=== PATIENT | male | born 1995 | race Caucasian/White ===

== ENCOUNTER 2023-08-16 13:44 | Outpatient (CLI) | payer MEDICAID, SELFPAY ==
[2023-08-16 14:12] LABS: Basophils % 0.7 % (0.1-2.0); Eosinophils # 0.1 K/mm3 (0.0-0.4); Eosinophils % 1.2 % (0.1-12.0); Hematocrit 39.8 % (42.0-52.0); Hemoglobin 13.4 g/dL (14.1-18.0); Lymphocytes # 1.8 K/mm3 (0.7-4.5); Lymphocytes % 28.4 % (10-50); Mean Corpuscular HGB Conc 33.7 g/dL (31.8-35.4); Mean Corpuscular Hemoglobin 30.3 pg (27.0-31.2); Mean Corpuscular Volume 89.9 fl (80-94); Mean Platelet Volume 8.9 fl (7.4-10.4); Monocytes # 0.4 K/mm3 (0.1-1.0); Monocytes % 5.9 % (1.7-9.3); Neutrophils # 4.1 K/mm3 (1.8-7.8); Neutrophils % 63.8 % (37.0-80.0); Platelet Count 225 K/mm3 (142-424); Red Blood Count 4.43 M/mm3 (4.60-6.20); Red Cell Distribution Width 14.4 % (11.5-17.5); White Blood Count 6.4 K/mm3 (4.8-10.8)
[2023-08-16 14:46] LABS: Chloride 105 mmol/L (98-107); Potassium 4.2 mmoL/L (3.5-5.1); Sodium 140 mmol/L (136-145)
[2023-08-16 14:47] LABS: Hemoglobin A1C 4.8 % (4.0-6.0)
[2023-08-16 14:48] LABS: Alanine Aminotransferase 69 U/L (12-78); Albumin Level 4.4 g/dl (3.5-5.0); Alkaline Phosphatase 84 U/L (38-126); Anion Gap 12.2 mEq/L (5-15); Aspartate Amino Transferase 53 U/L (17-59); Bilirubin,Indirect 0.8 mg/dL (0.0-0.9); Bilirubin,Total 0.8 mg/dl (0.2-1.3); Bilirubin,Unconjugated 0.8 mg/dL (0.0-1.1); Blood Urea Nitrogen 8 mg/dl (9-20); Carbon Dioxide 27 mmol/L (22.0-30.0); Cholesterol 166 mg/dl (140-200); Estimated Glomerular Filt Rate 115 ml/min (>60); GFR (African American) 139 ML/MIN (>60); Total Protein,Serum 7.6 g/dl (6.3-8.2); Triglycerides 101 mg/dl (30-150); VLDL Cholesterol 20 mg/dL (0-40)
[2023-08-16 14:49] LABS: Calcium 9.2 mg/dl (8.4-10.2); Chol/HDL Ratio 3.6 (1-3.5); Glucose 111 mg/dl (74-100); HDL Cholesterol 46 mg/dl (40-60)
[2023-08-16 15:02] LABS: Direct LDL Cholesterol 90.66 mg/dL (100-129)
[2023-08-16 15:06] LABS: Free T4 (Free Thyroxine) 1.03 ng/dl (0.78-2.19)
[2023-08-16 15:20] LABS: Thyroid Stimulating Hormone 3.24 uIU/mL (0.465-4.68)
== END 2023-08-16 23:59 | disposition home or self-care (01) ==
LOC: LAB 13:46
PROVIDERS: PCP Nurse Practitioner Family; Visit Provider Nurse Practitioner
DX: G47.33 Obstructive sleep apnea (adult) (pediatric) (principal); R06.83 Snoring; I10 Essential (primary) hypertension; Z82.49 Family history of ischemic heart disease and other diseases of the circulatory system
CPT/HCPCS: 36415; 80048; 80061; 80076; 83036; 83735; 84439; 84443; 85025

== ENCOUNTER 2023-09-18 12:14 | Outpatient (CLI) | payer MEDICAID, SELFPAY ==
--- NOTE | 2023-09-18 12:14 | CA_ITS ---
APPROVED REPORT EXAM: Comprehensive 2D, Doppler, and color-flow Echocardiogram [employer] Professor: Muriel Justice RDCS Ht: 5 ft 7 in Wt: 434lbs BSA: 2.81 BP: 152/71 mmHg Indications: HTN M-Mode Dimensions RVDd 1.49 cm (0.9-2.6) LA Diam 3.23 cm (1.9-4.0) LVDd 5.71 cm (3.5-5.7) LVDs 4.46 cm (3.5-5.7) IVSd 0.64 cm (0.6-1.1) PWd 0.84 cm (0.6-1.1) EF (Teich) 43.70% FS 21.90% EDV (Teich) 160.70 mL ESV (Teich) 90.50 mL LV Diastology E Decel Time 150 (160-240 msec) E/A Ratio 1.7 Mitral Valve MV E Max Ravinder. 94.0 (40-130 cm/s) MV A Velocity 56.0 (40-130 cm/s) E/A Ratio 1.68 MV PHT 44.0 ms Left Ventricle The left ventricle is normal size. The left ventricular systolic function is normal. The left ventricular ejection fraction is within the normal range. There is normal left ventricular wall thickness. There is normal LV segmental wall motion. The left ventricular diastolic function is normal. LVEF is 60%. Right Ventricle The right ventricle is normal size. The right ventricular systolic function is normal. Atria The left atrium size is normal. The right atrium size is normal. There is no Doppler evidence of interatrial shunt. Aortic Valve The aortic valve opens well. There is no aortic valvular stenosis. No aortic regurgitation is present. Mitral Valve The mitral valve is normal in structure. No evidence of mitral valve stenosis. There is no mitral valve regurgitation noted. Tricuspid Valve The tricuspid valve leaflets are thin and pliable. Trace tricuspid regurgitation. There is insufficient TR jet to estimate RVSP. Trace pulmonic regurgitation. Pulmonic Valve The pulmonary valve is normal in structure. Great Vessels The aortic root is normal in size. The ascending aorta is not well-visualized. IVC is normal in size and collapses >50% with inspiration. Pericardium There is no pericardial effusion. Other Information Study Quality: Technically Difficult Conclusion Technically difficult study due to poor acoustic windows. Normal biventricular systolic function. No significant valvular stenosis or regurgitation. Electronically signed by : Polly Ambrose MD 09/18/2023 14:27:33
== END 2023-09-18 23:59 | disposition home or self-care (01) ==
LOC: RT 12:14
PROVIDERS: PCP Nurse Practitioner Family; Visit Provider Nurse Practitioner
DX: R06.00 Dyspnea, unspecified (principal); Z82.49 Family history of ischemic heart disease and other diseases of the circulatory system
CPT/HCPCS: 93306

== ENCOUNTER → 2023-10-16 08:54 | Outpatient (CLI) | payer MEDICAID, SELFPAY | LOC: SL 08:54 | PROVIDERS: PCP Nurse Practitioner Family; Visit Provider Nurse Practitioner | DX: G47.33 Obstructive sleep apnea (adult) (pediatric) (principal) | CPT/HCPCS: G0399 ==

== ENCOUNTER 2024-04-25 13:21 | Outpatient (CLI) | payer MEDICAID, SELFPAY ==
[2024-04-25 13:41] LABS: Basophils % 0.5 % (0.1-2.0); Eosinophils # 0.1 K/mm3 (0.0-0.4); Eosinophils % 0.8 % (0.1-12.0); Hematocrit 38.7 % (42.0-52.0); Lymphocytes % 32.4 % (10-50); Mean Corpuscular HGB Conc 33.6 g/dL (31.8-35.4); Mean Corpuscular Hemoglobin 29.5 pg (27.0-31.2); Mean Platelet Volume 10.2 fl (7.4-10.4); Monocytes # 0.4 K/mm3 (0.1-1.0); Monocytes % 6.6 % (1.7-9.3); Neutrophils # 3.7 K/mm3 (1.8-7.8); Neutrophils % 59.4 % (37.0-80.0); Platelet Count 210 K/mm3 (142-424); Red Cell Distribution Width 12.7 % (11.5-17.5); White Blood Count 6.2 K/mm3 (4.8-10.8)
[2024-04-25 14:41] LABS: Alanine Aminotransferase 40 U/L (12-78); Albumin Level 4.6 g/dl (3.5-5.0); Alkaline Phosphatase 83 U/L (38-126); Anion Gap 9.9 mEq/L (5-15); Aspartate Amino Transferase 39 U/L (17-59); Bilirubin,Direct 0.2 mg/dl (0.0-0.4); Bilirubin,Indirect 0.4 mg/dL (0.0-0.9); Bilirubin,Total 0.6 mg/dl (0.2-1.3); Bilirubin,Unconjugated 0.4 mg/dL (0.0-1.1); Blood Urea Nitrogen 6 mg/dl (9-20); Calcium 10.3 mg/dl (8.4-10.2); Carbon Dioxide 28 mmol/L (22.0-30.0); Chloride 105 mmol/L (98-107); Chol/HDL Ratio 4.1 (1-3.5); Cholesterol 165 mg/dl (140-200); Estimated Glomerular Filt Rate 133 ml/min (>60); GFR (African American) 161 ML/MIN (>60); Glucose 125 mg/dl (74-100); HDL Cholesterol 40 mg/dl (40-60); Potassium 3.9 mmoL/L (3.5-5.1); Sodium 139 mmol/L (136-145); Total Protein,Serum 7.3 g/dl (6.3-8.2); Triglycerides 161 mg/dl (30-150); VLDL Cholesterol 32 mg/dL (0-40)
[2024-04-25 14:50] LABS: Free T4 (Free Thyroxine) 1.05 ng/dl (0.78-2.19)
[2024-04-25 14:52] LABS: Direct LDL Cholesterol 94.49 mg/dL (100-129)
[2024-04-25 15:11] LABS: Thyroid Stimulating Hormone 3.13 uIU/mL (0.465-4.68)
== END 2024-04-25 23:59 | disposition home or self-care (01) ==
LOC: LAB 13:22
PROVIDERS: PCP Nurse Practitioner Family; Visit Provider Nurse Practitioner
DX: I10 Essential (primary) hypertension (principal); E66.01 Morbid (severe) obesity due to excess calories; Z68.44 Body mass index [BMI] 60.0-69.9, adult; Z82.49 Family history of ischemic heart disease and other diseases of the circulatory system
CPT/HCPCS: 36415; 80048; 80061; 80076; 84439; 84443; 85025